=== PATIENT | female | born 1970 | race Caucasian/White ===

== ENCOUNTER → 2021-06-17 | Outpatient (CLI) | payer BC ==
[~2021-06-17] MED LIST: COLACE 100MG C100 MG PO; DECADRON6 MG PO; PERCOCET 5/325 T1 EA PO; [UNRECOGNIZED DRUG - OTHER]
== END ==
LOC: MAMO 08:00
DX: Z12.31 Encounter for screening mammogram for malignant neoplasm of breast (principal)
CPT/HCPCS: 77063; 77067